=== PATIENT | male | born 2005 | race Caucasian/White ===

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

== ENCOUNTER 2025-03-24 02:10 | Emergency (ER) | payer BC ==
[2025-03-24 02:27] VITALS: BP 115/79; PULSE 101
== END 2025-03-24 03:08 | disposition home or self-care (01) ==
LOC: MW.ED 02:10
DX: L30.9 Dermatitis, unspecified (principal); Z88.8 Allergy status to other drugs, medicaments and biological substances; Z79.51 Long term (current) use of inhaled steroids; Z79.899 Other long term (current) drug therapy
CPT/HCPCS: 99282; A9270

== ENCOUNTER 2025-06-11 23:12 | Emergency (ER) | payer BC ==
[2025-06-12 02:35] LABS: BASOPHILS ABSOLUTE AUTO 0.10 K/uL (0.00-0.30); BASOPHILS PERCENT AUTO 1.0 % (0.0-1.0); EOSINOPHILS ABSOLUTE AUTO 0.57 K/uL (0.00-0.70); EOSINOPHILS PERCENT AUTO 5.5 % (0.0-5.0); IMMATURE GRAN ABSOLUTE AUTO 0.04 K/uL (0.00-0.05); IMMATURE GRAN PERCENT AUTO 0.4 % (0.0-0.4); LYMPHOCYTES ABSOLUTE AUTO 4.02 K/uL (2.00-8.80); LYMPHOCYTES PERCENT AUTO 38.8 % (50.0-65.0); MEAN PLATELET VOLUME 9.2 fL (9.4-12.4); MONOCYTES ABSOLUTE AUTO 0.81 K/uL (0.10-1.40); MONOCYTES PERCENT AUTO 7.8 % (2.0-10.0); NEUTROPHILS ABSOLUTE AUTO 4.82 K/uL (1.50-8.50); NEUTROPHILS PERCENT AUTO 46.5 % (35.0-45.0); NRBC ABSOLUTE 0.00 K/uL (0.00-0.03); NRBC PERCENT 0.0 /100WBC (0.0-0.2); PLATELET COUNT,PLT 270 K/uL (150-400); RED BLOOD CELL COUNT 5.74 M/uL (4.52-5.90); WHITE BLOOD CELL COUNT,WBC 10.36 K/uL (4.5-13.5)
[2025-06-12 02:56] LABS: A/G RATIO 1.4 (0.9-1.6); ALANINE AMINOTRANSFERASE,ALT 31.0 IU/L (14-63); ASPARTATE AMNIOTRANSFERASE,AST 20.0 IU/L (15-37); BILIRUBIN TOTAL 0.3 mg/dL (0.2-1.0); BLOOD UREA NITROGEN,BUN 15.0 mg/dL (7.0-18.0); CARBON DIOXIDE,CO2 31.1 mmol/L (21.0-32.0); CHLORIDE,CL 105.0 mmol/L (98-107); CREATININE 0.9 mg/dL (0.8-1.3); EST CRCL DRUG DOSING (CG) 142.47 mL/min; GLUCOSE RANDOM 95.0 mg/dL (74-106); POTASSIUM,K 4.2 mmol/L (3.5-5.1); PROTEIN TOTAL,TP 7.2 g/dL (6.4-8.2); SODIUM,NA 141.0 mmol/L (136-148)
[2025-06-12 02:59] LABS: ESTIMATED GFR 126.0 mL/min (>60)
[2025-06-12] MEDS: Iopamidol 755 MG/ML 500 ML Multipack Bottle IVPUSH STA (03:16)
[2025-06-12 03:57] VITALS: BP 109/54; PULSE 62
[2025-06-12] MEDS: Dexamethasone Sod Phos Preservative Free 10 MG/ML Vial IVPUSH ONE (04:05)
== END 2025-06-12 04:16 | disposition home or self-care (01) ==
LOC: MW.ED 23:12
DX: J45.909 Unspecified asthma, uncomplicated (principal); R05.9 Cough, unspecified; Z75.3 Unavailability and inaccessibility of health-care facilities; Z88.1 Allergy status to other antibiotic agents; Z88.8 Allergy status to other drugs, medicaments and biological substances; Z79.899 Other long term (current) drug therapy
CPT/HCPCS: 36415; 70360; 70491; 71046; 80053; 85025; 86140; 87428; 96374; 99285; J1100; Q9967; 99283